=== PATIENT | male | born 1965 | race African-American/Black ===

== ENCOUNTER → 2023-09-27 | Day surgery (SDC) | payer MEDICARE, MEDICAID ==
[2023-09-22 10:28] LABS: Basophils # (auto) 0 10 ^3/uL (0-0.2); Basophils % (auto) 0.6 % (0.0-2.0); Eosinophils # (auto) 0.2 10 ^3/uL (0-0.8); Eosinophils % (auto) 2.4 % (0.0-7.0); Hematocrit 38.4 % (41.0-53.0); Hemoglobin 12.2 g/dL (13.5-17.5); Lymphocytes % (auto) 43.4 % (10.0-50.0); Mean Corpuscular Hemoglobin 27.1 pg (28.0-32.0); Mean Corpuscular Hgb Conc. 31.7 g/dL (32.0-36.0); Mean Corpuscular Volume 85.7 fL (80.0-100.0); Monocytes # (auto) 0.6 10 ^3/uL (0-1.3); Monocytes % (auto) 9.4 % (0.0-12.0); Neutrophils % (auto) 44.2 % (37.0-80.0); Nucleated Red Blood Cells % 0.1 %; Red Blood Cells 4.48 10^6/uL (4.5-5.90); Red Cell Distribution Width 15.6 % (11.8-14.3); White Blood Cell 6.9 10^3/uL (4.4-10.8)
[2023-09-22 11:04] LABS: Alanine Aminotransferase 23 U/L (7-40); Alkaline Phosphatase 121 U/L (46-116); Anion Gap 4 (5-15); BUN/Creatinine Ratio 9.7 (10.0-20.0); Blood Urea Nitrogen 11 mg/dL (9-23); Calcium 10.2 mg/dL (8.5-10.1); Carbon Dioxide 28 mmol/L (20-30); Chloride 107 mmol/L (98-107); Glucose 102 mg/dL (74-106); Potassium 4.5 mmol/L (3.5-5.1); Sodium 139 mmol/L (136-145)
[2023-09-22 11:05] LABS: Albumin 4.7 g/dL (3.2-4.8); Aspartate Aminotransferase 16 U/L (13-40); Bilirubin, Total 0.3 mg/dL (0.2-1.0)
[2023-09-22 11:06] LABS: Total Protein 8.1 g/dL (5.7-8.2)
[2023-09-22 11:24] LABS: INR 1.01 (0.9-1.15); Partial Thromboplastin Time 26.1 SEC (24.5-34.5); Prothrombin Time 10.7 sec (9.3-11.8)
[~2023-09-27] VITALS: Ht 170.2 cm; Wt 101.6 kg
[~2023-09-27] MED LIST: ALL100T PO; ATOR-507 PO; CHOL20004 PO; COLC1CAP PO; DICL50TA5 PO; LISI20TA56 PO; MONT-8 OR; PREG75CA PO; SODIUM CHLORIDE LOCK 10 ML ONE
[2023-09-27] MEDS: MIDAZOLAM HCL 5 MG/ML-1ML VIAL ONE (11:17)
[2023-09-27] MEDS: diphenhdrAMINE HCL 50 MG/1 ML VL ONE (11:17)
[2023-09-27] MEDS: fentaNYL CITRATE 100 MCG/2 ML VL ONE (11:17)
[2023-09-27 11:37] VITALS: PULSE 64; RESP 18; TEMP 98.5; O2SAT 96
[2023-09-27 12:07] VITALS: BP 122/66; PULSE 53; RESP 20; O2SAT 97
== END | disposition home or self-care (01) ==
LOC: GI 09:41
PROVIDERS: ATTEND Internal Medicine Gastroenterology
DX: R19.5 Other fecal abnormalities (principal); K63.89 Other specified diseases of intestine; I10 Essential (primary) hypertension; E78.00 Pure hypercholesterolemia, unspecified; J42 Unspecified chronic bronchitis; E11.40 Type 2 diabetes mellitus with diabetic neuropathy, unspecified; E78.5 Hyperlipidemia, unspecified; E66.9 Obesity, unspecified; Z68.35 Body mass index [BMI] 35.0-35.9, adult; Z79.01 Long term (current) use of anticoagulants; Z79.899 Other long term (current) drug therapy; Z86.010 Personal history of colon polyps; Z98.890 Other specified postprocedural states
CPT/HCPCS: 36415; 45378; 80053; 85025; 85610; 85730; J1200; J2250; J3010; J7030; 99152